=== PATIENT | female | born 1970 | race Caucasian/White ===

== ENCOUNTER 2020-04-07 07:16 | Day surgery (SDC) | payer BC ==
[~2020-04-07 07:16] MED LIST: Lactated Ringers 1,000 ML IV SCH; Sodium Chloride 0.9% 10 ML Syringe FLUSH PRN
[2020-04-07] MEDS ORDERED: Propofol 200 MG/20 ML SDV IV ONE (07:17)
[2020-04-07] MEDS ORDERED: Lidocaine 1% PF 2 ML SDV IV ONE (07:17)
--- NOTE | 2020-04-07 10:38 | PCM.OPNOTE ---
- General Post-Op/Procedure Note Date of Surgery/Procedure: 04/07/20 Operative Procedure(s): c scope with bx Findings: ascending colon polyps x2 scattered diverticulosis Pre Op Diagnosis: screening Post-Op Diagnosis: ascending colon polyps x2. scattered diverticulosis Anesthesia Technique: DIANELYS Primary Surgeon: Nikko Sun Anesthesia Provider: Henok Tello Pathology: ascending colon polyp x2 Complications: None Condition: Good Free Text/Narrative:: see dictation
--- NOTE | 2020-04-08 09:13 | OR ---
DATE OF OPERATION: 04/07/2020 SURGEON: Nikko Sun MD PROCEDURE PERFORMED: Colonoscopy with cold forceps biopsy. PREOPERATIVE DIAGNOSIS: Need for colon cancer screening. POSTOPERATIVE DIAGNOSIS: Ascending colon polyps x2 and scattered diverticulosis. INDICATIONS FOR PROCEDURE: This is a 49-year-old white female who presents for screening colonoscopy. She is without complaints. DESCRIPTION OF PROCEDURE: After an excellent IV sedation was administered, a digital rectal exam was performed. No marked abnormality was noted. Flexible colonoscope was inserted and advanced to the cecum. The prep was excellent. The following findings were noted: Ascending colon: Two 3 mm areas consistent with early adenomatous change, biopsied, and submitted in 1 container. Transverse colon: Occasional diverticula. Descending colon: Occasional diverticula. Sigmoid: Occasional diverticula. Rectum and Anus: Unremarkable. Colon was deflated as the scope was removed. The patient tolerated the procedure well. Results will be sent to her via letter. /[id number] GEOFFREY/GIOVANNI
== END 2020-04-07 11:25 | disposition home or self-care (01) ==
LOC: FB.SDS 07:16
PROVIDERS: ATTEND Surgery
DX: Z12.11 Encounter for screening for malignant neoplasm of colon (principal); D12.2 Benign neoplasm of ascending colon; K57.30 Diverticulosis of large intestine without perforation or abscess without bleeding; I10 Essential (primary) hypertension; E78.5 Hyperlipidemia, unspecified; F17.210 Nicotine dependence, cigarettes, uncomplicated; Z79.899 Other long term (current) drug therapy
CPT/HCPCS: 45380; 88305; J2001; J2704; J7120; 00812-QZ

== ENCOUNTER 2024-10-30 06:22 | Day surgery (SDC) | payer BC ==
[~2024-10-30 06:22] MED LIST changes: -Lactated Ringers 1,000 ML IV SCH
[2024-10-30] MEDS ORDERED: fentaNYL 100 MCG/2 ML SDV IV ONE (06:23)
[2024-10-30] MEDS ORDERED: Midazolam 1 MG/ML 2 ML SDV IV ONE (06:23)
[2024-10-30] MEDS ORDERED: Propofol 200 MG/20 ML SDV IV ONE (06:23)
[2024-10-30] MEDS: Lactated Ringers 1,000 ML IV SCH (07:15)
[2024-10-30] MEDS: ceFAZolin 2 GM Vial IVPUSH ONE (07:36)
[2024-10-30] MEDS: Bupivacaine 0.5% 30 ML SDV INJECT ONE (07:56)
[2024-10-30] MEDS: Lidocaine 1% with EPINEPHrine 1:100,000 20 ML MDV INJECT ONE (07:56)
== END 2024-10-30 09:16 | disposition home or self-care (01) ==
LOC: FB.SDS 06:22
PROVIDERS: ATTEND Surgery
DX: L72.0 Epidermal cyst (principal); I10 Essential (primary) hypertension; E78.5 Hyperlipidemia, unspecified; E66.9 Obesity, unspecified; F17.210 Nicotine dependence, cigarettes, uncomplicated; Z88.5 Allergy status to narcotic agent; Z68.30 Body mass index [BMI] 30.0-30.9, adult; Z79.899 Other long term (current) drug therapy
CPT/HCPCS: 00300; 11404; 88304; J0665; J0690; J2004; J2250; J2704; J3010; J7120